=== PATIENT | male | born 1945 | race Caucasian/White ===

== ENCOUNTER 2023-09-21 14:22 | Outpatient (CLI) | payer MEDICARE, BC, SELFPAY ==
[2023-09-21 16:56] LABS: ESR 2 mm/hr (0-20)
[2023-09-21 19:01] LABS: CRP, High Sensitivity 1.59 mg/L (See Note)
[2023-09-22 11:00] LABS: Lyme Ab w Rflx to Lyme Confirm Negative (Negative)
[2023-09-23 14:28] LABS: Anaplasma phagocytophilum Negative (Negative); B. miyamotoi PCR Negative (Negative); Babesia divergens/MO-1 Negative (Negative); Babesia duncani Negative (Negative); Babesia microti Negative (Negative); Ehrlichia chaffeensis Negative (Negative); Ehrlichia ewingii/canis Negative (Negative); Ehrlichia muris eauclairensis Negative (Negative)
== END 2023-09-21 14:23 | disposition home or self-care (01) ==
LOC: LBO 14:26
PROVIDERS: PCP Nurse Practitioner Family; Visit Provider Otolaryngology
DX: R44.8 Other symptoms and signs involving general sensations and perceptions (principal)
CPT/HCPCS: 36415; 85652; 86141; 87798; 86618

== ENCOUNTER → 2023-11-05 00:31 | Outpatient (CLI) | payer MEDICARE, BC, SELFPAY ==
--- NOTE | 2023-11-05 07:15 | DI.CT_ITS ---
Exam(s) CT SINUS WO EXAM: CT SINUS WO CLINICAL HISTORY: recurrent facial pressure/responsive to abx,CHRONIC SINUSITIS,R44.8,J32.9. TECHNIQUE: Imaging Protocol: Axial computed tomography images with coronal and sagittal reformatted images were created and reviewed. No IV Contrast COMPARISON: No exams were available for comparison FINDINGS: MAXILLARY SINUSES: No significant mucosal thickening nor fluid levels. There is no evidence of bone dehiscence. OSTIOMEATAL UNITS: Patent bilaterally ETHMOIDAL AIR CELLS: Well aerated. No mucosal thickening nor fluid levels. SPHENOID SINUSES: Well aerated. No mucosal thickening nor fluid levels. FRONTAL SINUSES: Well aerated. No mucosal thickening nor fluid levels. NASAL SEPTUM AND TURBINATES:Nasal septum is relatively midline with no evidence of significant nasal septal spur. There is aeration of the left middle turbinate but no obstruction of the nasal passages. IMPRESSION: 1. Unremarkable CT scan of the paranasal sinuses. 2. RADIATION DOSE DELIVERED: Total DLP DATA REPOSITORY: All CT scans at this facility are submitted to the National Rad[employer] Data Registry (NRDR) Dose Index Registry (DIR) with the [employer] ([employer]). RADIATION OPTIMIZATION: All CT scans at this facility use at least one of these dose optimization te chniques: automated exposure control; mA and/or kV adjustment per patient size (includes targeted exa ms where dose is matched to clinical indication); or iterative reconstruction.
== END ==
PROVIDERS: PCP Nurse Practitioner Family; Visit Provider Otolaryngology
DX: J32.9 Chronic sinusitis, unspecified (principal); R44.8 Other symptoms and signs involving general sensations and perceptions
CPT/HCPCS: 70486